=== PATIENT | male | born 1960 | race Caucasian/White ===

== ENCOUNTER → 2021-08-31 08:11 | Outpatient (BNVA) | payer OTHER, SELFPAY | PROVIDERS: Referring Provider Specialist; Visit Provider Specialist | DX: G62.89 Other specified polyneuropathies (principal) | CPT/HCPCS: 95909 ==

== ENCOUNTER 2021-09-01 10:47 | Outpatient (CLI) | payer OTHER, SELFPAY ==
--- NOTE | 2021-09-01 11:00 | MR_ITS ---
WS: [id number] MRI LUMBAR SPINE NONCONTRAST HISTORY: Muscle spasm. Low back pain. Pain and LEFT hip. COMPARISON: None available. TECHNIQUE: Sagittal and axial multisequence imaging is submitted. Straightening of the normal cervical and thoracic spines. Slight reversal of the upper cervical spine with mild contact on the ventral thecal sac. Advanced degenerative disc disease and osteophytosis at C3-4, C4-5 and C5-6. Straightening of the normal lumbar lordosis. L5 anterolisthesis by 12.7 mm. Mild disc space narrowing and desiccation throughout the lumbar spine with the exception at L5-S1. At L5-S1 there is severe disc space narrowing and desiccation. No acute marrow edema or fracture. Conus terminates normally at L1-2 disc level. L1-L2: Mild annular disc bulging and ligamentum flavum hypertrophy. Mild foraminal narrowing. L2-L3: Mild disc bulging and ligamentum flavum hypertrophy. Very mild foraminal narrowing. L3-L4: Mild annular disc bulging and osteophytic ridging with ligamentum flavum and facet arthritis. No central stenosis. There is mild bilateral foraminal stenosis. L4-L5: Mild annular disc bulging with mild ligamentum flavum hypertrophy. Mild to moderate bilateral foraminal stenosis with increased fluid in the facet joints. Thecal sac is becoming elongated and ect atic. L5-S1: Anterolisthesis of L5 with unroofing of the disc. 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 Combination of findings is resulting in moderate to severe bilateral wallace barticular recess and foraminal stenosis. There is disc and osteophyte encroachment upon the L5 and S 1 nerve roots. Thecal sac centrally is ectatic and patulous. Bilateral renal cysts. The largest on the RIGHT measures 3.9 cm. MR/MR lumbar spine wo con* [id number] IMPRESSION: 1. Grade 2 anterolisthesis of L5 resulting in moderate to severe bilateral sub articular recess and foraminal stenosis. Significant contact upon the L5 and S1 nerve roots. 2. Multiple moderate bilateral foraminal stenosis at L4-5 with mild foraminal narrowing at L1-2, L2-3 and L3-4.
== END 2021-09-01 10:48 | disposition home or self-care (01) ==
PROVIDERS: Visit Provider Specialist
DX: S32.008A Other fracture of unspecified lumbar vertebra, initial encounter for closed fracture (principal); X58.XXXA Exposure to other specified factors, initial encounter; M62.830 Muscle spasm of back; M54.50 Low back pain, unspecified; M25.552 Pain in left hip; M48.061 Spinal stenosis, lumbar region without neurogenic claudication
CPT/HCPCS: 72148